=== PATIENT | female | born 1990 | race Hispanic/Latino ===

== ENCOUNTER 2017-05-06 11:57 | Emergency (ER) | payer OTHER ==
[~2017-05-06] VITALS: Ht 180.3 cm; Wt 70.9 kg
[2017-05-06] MEDS ORDERED: ACETAMINOPHEN 325 MG TAB PO ONE (13:30)
[2017-05-06] MEDS ORDERED: KETOROLAC 60 MG/2 ML VIAL (J1885) IM ONE (14:15)
[2017-05-06] MEDS ORDERED: TYLE325T5 PO (14:19)
[2017-05-06] MEDS ORDERED: NAPR500T3 PO (14:19)
[2017-05-06] MEDS ORDERED: CYCL5TAB PO (14:19)
--- NOTE | 2017-05-06 14:27 | REP ---
Pain after trauma. FINDINGS: Five views of the lumbosacral spine show no acute fracture, dislocation or subluxation. The intervertebral disc spaces are symmetric and well maintained. There is no spondylolysis or spondylolisthesis. The pedicles are intact bilaterally and there is no destructive osseous lesion. IMPRESSION: Unremarkable lumbosacral spine series. Signed by Robbin Whitlock DO 05/06/2017 02:33 P
[2017-05-06] MEDS ORDERED: CYCLOBENZAPRINE 10 MG TAB PO ONE (14:30)
[2017-05-06 14:48] VITALS: BP 128/60
== END 2017-05-06 15:16 | disposition home or self-care (01) ==
LOC: M ED 11:57
DX: M54.16 Radiculopathy, lumbar region (principal); S39.012A Strain of muscle, fascia and tendon of lower back, initial encounter
CPT/HCPCS: 72110; 81025; 96372; 99284; J1885

== ENCOUNTER 2018-06-19 17:52 | Emergency (ER) | payer OTHER ==
[~2018-06-19] VITALS: Ht 180.3 cm; Wt 75.9 kg
[~2018-06-19 17:52] MED LIST: CYCL5TAB PO; NAPR-885 PO; TYLE325T5 PO
[2018-06-19] MEDS ORDERED: NAPR-50 PO (20:55)
[2018-06-19] MEDS ORDERED: ROBA500T PO (20:55)
[2018-06-19] MEDS ORDERED: NORCO 5/325MG TABLET (BULK FOR ED) PO ONE (21:00)
[2018-06-19] MEDS ORDERED: METHOCARBAMOL 750 MG TAB PO ONE (21:00)
[2018-06-19] MEDS ORDERED: NAPROXEN 250 MG TAB PO ONE (21:00)
[2018-06-19 21:04] VITALS: BP 124/73
== END 2018-06-19 21:14 | disposition home or self-care (01) ==
LOC: M ED 17:52
DX: M54.5 Low back pain (principal); G89.29 Other chronic pain; M62.830 Muscle spasm of back